=== PATIENT | male | born 1965 | race Caucasian/White ===

== ENCOUNTER 2019-01-25 06:47 | Day surgery (SDC) | payer MEDICAID ==
[~2019-01-25] VITALS: Ht 175.3 cm; Wt 86.2 kg
[~2019-01-25 06:47] MED LIST: AMLO5TAB15 PO; CETI1TAB36 PO; GABA400C11 PO; LISI20TA33 PO; OMEP-263 PO; PRAV20TA3 PO
[2019-01-25] MEDS ORDERED: HEPARIN IN NS 1000Units/500mL 1,500 ML ONE (07:16)
[2019-01-25] MEDS ORDERED: LIDOCAINE 2%HCL (LOCAL ANESTH.) INJ 20ML MDV ONE (07:16)
[2019-01-25] MEDS ORDERED: IODIXANOL 320MG/ML 100ML BTL IV ONE ×2 (07:16→07:39)
[2019-01-25] MEDS ORDERED: MIDAZOLAM HCL 1MG/1ML-2 ML VIAL ONE (07:31)
[2019-01-25] MEDS ORDERED: fentaNYL CITRATE 100 MCG/2 ML VL ONE (07:32)
[2019-01-25] MEDS ORDERED: ANGIOMAX 250 MG VIAL IV ONE (07:32)
[2019-01-25] MEDS ORDERED: SODIUM CHL 0.9% 0 ML ONE (07:32)
[2019-01-25] MEDS ORDERED: VERAPAMIL 2.5MG/ML INJ 2ML VIAL IV ONE (07:33)
[2019-01-25] MEDS ORDERED: HEPARIN SODIUM (PORCINE) 5000 UNITS/ML 1ML VIAL ONE (07:51)
== END 2019-01-25 10:05 | disposition home or self-care (01) ==
LOC: CATH 06:47
PROVIDERS: ATTEND Internal Medicine
DX: R94.39 Abnormal result of other cardiovascular function study (principal); R06.02 Shortness of breath; I10 Essential (primary) hypertension; A15.9 Respiratory tuberculosis unspecified; F17.210 Nicotine dependence, cigarettes, uncomplicated; E78.5 Hyperlipidemia, unspecified; Z79.899 Other long term (current) drug therapy; Z98.52 Vasectomy status; Z88.0 Allergy status to penicillin; Z91.018 Allergy to other foods
CPT/HCPCS: 93005; 93458; C1769; C1894; J1644; J2250; J3010; J7030; Q9967; 99152